=== PATIENT | male | born 1985 | race Caucasian/White ===

== ENCOUNTER 2016-08-23 19:33 | Emergency (ER) | payer OTHER ==
[2016-08-23] MEDS ORDERED: CHLORHEXIDINE GLUCONATE 4 % 15 ML UD TOP ONE (20:17)
[2016-08-23 20:36] VITALS: BP 112/70; TEMP 97.3
--- NOTE | 2016-08-23 21:12 | ED.PDOC ---
History of Present Illness - General Chief Complaint: Laceration Stated Complaint: laceration to thumb Time Seen by Provider: 08/23/16 20:17 Source: patient, RN notes reviewed, Vital Signs reviewed Exam Limitations: no limitations - History of Present Illness Initial Comments: Patient cut his L thumb with a hatchet while cutting wood. He is concerned he has injured the tendon or bone. No numbness or tingling. Able to move distal thumb. Timing/Duration: just prior to arrival Severity: mild Location: hands Improving Factors: rest, other - pressure Worsening Factors: movement Associated Symptoms: denies symptoms Allergies/Adverse Reactions: Allergies NO KNOWN ALLERGY Allergy (Verified 08/23/16 20:36) Review of Systems - Review of Systems Constitutional: States: no symptoms reported Musculoskeletal: States: see HPI Skin: States: see HPI Neurological: States: no symptoms reported. Denies: numbness, paresthesia, weakness Past Medical History (General) - Patient Medical History Hx Asthma: No Hx Cardiac Disorders: Yes - hx svt Hx Diabetes: No Surgical History: no surgical history - Vaccination History Hx Tetanus, Diphtheria Vaccination: No Hx Influenza Vaccination: No - Social History Hx Tobacco Use: No Hx Alcohol Use: Yes - occ Family Medical History - Family History Mother Family History: Unknown Physical Exam - Physical Exam General Appearance: Alert, Anxious, No apparent distress, Well Developed, Well Groomed, Well Hydrated, Well Nourished Extremity: normal range of motion Neurologic: no motor/sensory deficits, alert, normal mood/affect, oriented x 3 Skin Exam: other - L thumb- medial aspect: linear laceration, no active bleeding , well approximated. No tendon injury Skin Problem Location: upper extremities Skin Character: other - see above Progress - EKG/XRAY/CT XRAY: L thumb: no fracture Procedures - Laceration/Wound Repair Left Medial Finger Wound Length (cm): 1.5 - L thumb Wound's Depth, Shape: superficial, linear Wound Explored: no foreign body removed Betadine Prep?: No - Soaked in Hibiclens for 15 minutes Volume Anesthetic (cc's): 0 Wound Debrided: minimal Wound Repaired With: dermabond Layer Closure?: No Sterile Dressing Applied?: No Splint Applied?: No Sling Applied?: No Departure - Departure Clinical Impression: Laceration of thumb without complication Qualifiers: Encounter type: initial encounter Laterality: left Qualifier Code: (S61.012A) Laceration without foreign body of left thumb without damage to nail, initial encounter Time of Disposition: 21:15 Disposition: Discharge to Home or Self Care Condition: Good Departure Forms: ED Discharge - Pt. Copy, Patient Portal Self Enrollment Instructions: DI for Laceration Repair With Dermabond Diet: resume usual diet Activity: increase activity as tolerated
--- NOTE | 2016-08-23 21:17 | RAD ---
Procedure: XR FINGERS Exam Date: 08/23/2016 Ordering Provider: Michela Roberts Clinical Indication: cut with hatchet Comparison: None Findings: No acute fracture or dislocation of the left thumb. No radiopaque foreign bodies. No soft tissue gas. No suspicious bony lesions. Impression: 1. No acute fracture or dislocation of the left thumb. Electronically signed by: Lisandro Gonzales MD 08/23/2016 9:16 PM CDT
[2016-08-23 21:56] VITALS: O2SAT 99
== END 2016-08-23 21:35 | disposition home or self-care (01) ==
LOC: EDSEX 19:33 → ER 19:33
DX: S61.012A Laceration without foreign body of left thumb without damage to nail, initial encounter (principal); W27.0XXA Contact with workbench tool, initial encounter